=== PATIENT | female | born 1970 ===

== ENCOUNTER 2019-08-28 16:31 | Emergency (ER) | payer SELFPAY ==
[2019-08-28 16:54] VITALS: BP 153/88; PULSE 94; RESP 16; TEMP 37.1; O2SAT 99; BMI 31.8
--- NOTE | 2019-08-28 17:12 | ED_ITS ---
HPI - Skin/Abscess/Foreign Bdy General: Chief complaint: Skin/Abscess/Foreign Body Stated complaint: possible cyst Time Seen by Provider: 08/28/19 17:09 History of Present Illness: HPI narrative: Patient is a 49-year-old female comes to the ED with painful lesion on groin area. Patient says symptoms started about 2 to 3 days ago. Lesion has gotten bigger and more painful. Location of the lesion is just to the right of the vagina. Lesion has erythema and warmth. She describes it as a sharp and burning pain. She rates the pain an 8 out of 10 when she has to do any movement. Patient says earlier today she sterilized a needle and tried to pop lesion but it was unsuccessful and too painful. Denies any fever, chills, nausea, vomiting, bladder or bowel symptoms. Associated symptoms: Deny chills, fever(s), nausea or vomiting Review of Systems Const: Denies: fever(s), chills or fatigue Eyes: Denies: change in vision or eye discomfort ENMT: Denies: throat pain, odynophagia, nasal discharge or nasal congestion Card: Denies: chest pain, palpitations, edema, swelling of feet/ankles, dyspnea on exertion or orthopnea Resp: Denies: dyspnea, productive cough or non-productive cough GI: Denies: abdominal pain, nausea, vomiting, diarrhea, constipation or hematochezia : Reports: genital lesions (possible abscess); Denies: flank pain, dysuria or hematuria Musc: Denies: neck pain, back pain or extremity swelling Skin/Breast: Reports: new lesions; Denies: rash Neuro: Denies: headache(s), numbness in extremities or weakness in extremities PFS ED PFSH: Social History Smoking and tobacco status: current every day smoker Physical Exam Const: COMMON NORMALS: no acute distress, patient oriented x3 and alert GENERAL APPEARANCE: cooperative and comfortable HENMT: COMMON NORMALS: normocephalic HEAD & SCALP: normocephalic MOUTH: Normal oral and palatal mucosa present THROAT: posterior oropharynx normal and uvula midline Eye: COMMON NORMALS: Equal, round and reactive pupils present PUPIL: Yes Equal, round and reactive pupils present Neck/C-Spine: COMMON NORMALS: supple GENERAL: Yes normal visual inspection Resp: COMMON NORMALS: normal respiratory effort, No retractions, No use of accessory muscles and clear to auscultation bilaterally AUSCULTATION: clear to auscultation bilaterally Cardio: COMMON NORMALS: regular rate, regular rhythm, S1 normal heart sound present, S2 normal heart sound present, No gallops present (Cardio), No clicks present (Cardio), No murmurs present (Cardio) and Peripheral pulses 2+ throughout RATE: regular rate RHYTHM: regular rhythm HEART SOUNDS: S1 normal heart sound present and S2 normal heart sound present PERIPHERAL PULSES: Peripheral pulses 2+ throughout GI: COMMON NORMALS: Normal to inspection, nondistended, normoactive bowel sounds present, Soft to palpation, non-tender and no masses PALPATION: Yes Soft to palpation : COMMON NORMALS: Yes no CVA tenderness BLADDER/KIDNEY EXAM: Yes no CVA tenderness EXTERNAL FEMALE EXAM: Yes externally tender, Yes external swelling and Yes lesion (Exam finding details in Skin exam section) Back/Pelvis: COMMON NORMALS: no CVA tenderness Extremity: COMMON NORMALS: normal to inspection and no pedal edema Neuro: COMMON NORMALS: patient oriented x3 and moves all extremities SENSORIUM/ORIENTATION: Yes alert Skin: LESIONS: lesion noted Genital Lesion Lesion size (cm): 1 Lesion location: lower right labia majora Lesion color: Yes erythematous and Yes white (white head) Lesion consistency: Yes fluctuent and Yes firm Lesion surface: Yes pointed and Yes warm Lesion finding consistent with: Yes other (abscess) Procedures Abscess I/D Site: other (On right lower outer labia majora) Local Anesthetic: lidocaine 1% Amount of anesthesia used (mL): 10 Technique: other (10 blade) Amount of fluid expressed (mL): 1 Irrigation: Yes Packing used?: none Course Vital Signs: Vital signs: Vital Signs Temperature 98.7 F 08/28/19 16:54 Pulse Rate 78 08/28/19 21:20 Respiratory Rate 18 08/28/19 21:20 Blood Pressure 133/78 08/28/19 21:20 Pulse Oximetry 97 08/28/19 21:20 MDM - Skin/Abscess/Foreign Bdy MDM Narrative: Medical decision making narrative: Patient is a 49-year-old female comes to the ED with an abscess on external genital right labia majora. 1% local lidocaine was used and a small incision made with some purulent drainage removed. Culture of purulent drainage was collected and sent to lab. Patient was then given prescription for Bactrim and told to follow-up with PCP in 7 days for reevaluation. Patient was told to return to the ED if symptoms continue to worsen after 3 days of antibiotic treatment. Patient understood and agreed with plan. Discharge Plan Discharge Patient Disposition: Home, Self-Care Clinical Impression: Abscess Condition: Stable Prescriptions: New Bactrim DS 800-160 mg tablet 1 tab PO BID 7 Days Qty: 14 RF: 0 Discharge Orders: Discharge Order (Routine); Ordered 08/28/19 Ordered By: Jaren Delarosa Referrals: David Avalos MD [Primary Care Provider] - Discharge Diet: Regular Discharge Activity: Resume usual activity Patient Instructions: Abscess Incision and Drainage (ED), Abscess (ED) Activity Restrictions/Additional Instructions: Call your PCP tomorrow morning and set up a follow-up appointment sometime early next week. Take full course of antibiotic as prescribed. Take Tylenol or ibuprofen for pain. Clean around abscess site daily. Return to ED for reevaluation if symptoms worsen after being on antibiotic for 3 days. Discharge Date/Time: 08/28/19 21:39 Coding Level of Care Code ED Pest Management Supervisor for Merly Fwfabrizio Exam Comprehensive
[2019-08-28] MEDS: lidocaine 1% INJ 20 mL IM (18:49)
[2019-08-28] MEDS: HYDROcodone-acetaminophen 7.5-325 mg Tablet 1 TAB PO ×2 (18:49→21:09)
[2019-08-28] MEDS: sulfamethoxazole-trimeth DS 160-800 mg Tablet 1 TAB PO (21:09)
[2019-08-28 21:20] VITALS: BP 133/78; PULSE 78; RESP 18; O2SAT 97
== END 2019-08-28 21:39 | disposition home or self-care (01) ==
PROVIDERS: Emergency Provider Physician Assistant; PCP Family Medicine
DX: N76.4 Abscess of vulva (principal); F17.210 Nicotine dependence, cigarettes, uncomplicated
CPT/HCPCS: 12345; 56405; 99281; 99283; J2001

== ENCOUNTER 2022-01-03 13:07 | Emergency (ER) | payer BC, MEDICAID, SELFPAY ==
[2022-01-03 13:15] VITALS: BP 135/63; PULSE 65; RESP 16; TEMP 36.6; O2SAT 99; BMI 31.4
--- NOTE | 2022-01-03 13:47 | ED_ITS ---
HPI - Wound/Laceration General: Chief Complaint: Wound/Laceration Stated Complaint: Right side big toe infection Time Seen by Provider: 01/03/22 13:37 History of Present Illness: Patient is a 51-year-old female comes to the ED with left toe pain and swelling. Symptoms started approximately 4 days ago. She rates her pain currently an 8 out of 10. Denies any fever, chills, nausea/vomiting, bladder or bowel symptoms. Associated symptoms: Denies chills, fever(s), nausea or vomiting Review of Systems Const: Denies: fever(s), chills or fatigue Eyes: Denies: change in vision or eye discomfort ENMT: Denies: throat pain, odynophagia, nasal discharge or nasal congestion Card: Denies: chest pain, palpitations, edema, swelling of feet/ankles, dyspnea on exertion or orthopnea Resp: Denies: dyspnea, productive cough or non-productive cough GI: Denies: abdominal pain, nausea, vomiting, diarrhea, constipation or hematochezia : Denies: flank pain, dysuria or hematuria Musc: Reports: extremity pain (left great toe pain) and extremity swelling (left great toe swelling); Denies: neck pain or back pain Skin/Breast: Denies: rash or new lesions Neuro: Denies: headache(s), numbness in extremities or weakness in extremities PFS ED PFSH: Medical History No pertinent family history Surgical History No pertinent past surgical history Social History Smoking and tobacco status: current every day smoker Female Reproductive History: Date of last menstrual period: 12/18/21 Physical Exam Const: COMMON NORMALS: no acute distress, patient oriented x3 and alert GENERAL APPEARANCE: cooperative and comfortable HENMT: COMMON NORMALS: normocephalic HEAD & SCALP: normocephalic MOUTH: Normal oral and palatal mucosa present THROAT: posterior oropharynx normal and uvula midline Neck/C-Spine: COMMON NORMALS: supple GENERAL: Yes normal visual inspection Resp: COMMON NORMALS: normal respiratory effort, No retractions, No use of accessory muscles and clear to auscultation bilaterally AUSCULTATION: clear to auscultation bilaterally Cardio: COMMON NORMALS: regular rate, regular rhythm, S1 normal heart sound present, S2 normal heart sound present, No gallops present (Cardio), No clicks present (Cardio), No murmurs present (Cardio) and Peripheral pulses 2+ throughout RATE: regular rate RHYTHM: regular rhythm HEART SOUNDS: S1 normal heart sound present and S2 normal heart sound present PERIPHERAL PULSES: Peripheral pulses 2+ throughout GI: COMMON NORMALS: Normal to inspection, nondistended, normoactive bowel sounds present, Soft to palpation, non-tender and no masses PALPATION: Yes Soft to palpation : COMMON NORMALS: Yes no CVA tenderness BLADDER/KIDNEY EXAM: Yes no CVA tenderness Back/Pelvis: COMMON NORMALS: no CVA tenderness Extremity: NARRATIVE EXTREMITY EXAM: Left foot?ingrown toenail with some surrounding erythema, swelling and warmth. No purulent drainage seen. Neuro: COMMON NORMALS: patient oriented x3 SENSORIUM/ORIENTATION: Yes alert GAIT: Yes Normal gait present Skin: GENERAL SKIN EXAM: dry skin Course Vital Signs: Vital signs: Vital Signs Temperature 97.8 F 01/03/22 13:15 Pulse Rate 65 01/03/22 13:15 Respiratory Rate 16 01/03/22 13:15 Blood Pressure 135/63 01/03/22 13:15 Pulse Oximetry 99 01/03/22 13:15 Oxygen Delivery Me thod 01/03/22 13:15 MDM - Wound/Laceration Medical Decision Making Patient is a 51-year-old female comes to the ED with left great toe pain and swelling. Vitals are stable. Exam findings show ingrown toenail with some surrounding erythema, swelling and warmth. I placed order with case management for patient be referred to podiatry. Patient was discharged home with a prescription for Celebrex for pain and clarithromycin. She was told that director of casework will get an appointment set up with podiatry so she can have an ingrown toenail removed. Discharge Plan Discharge Patient Disposition: Home Clinical Impression: Ingrowing nail, left great toe Condition: Stable Prescriptions: New clarithromycin 500 mg tablet 500 mg PO BID 7 Days Qty: 14 0RF Celebrex 100 mg capsule 100 mg PO BID PRN (Reason: pain) Qty: 20 0RF Discharge Orders: Discharge ED (Routine); Ordered 01/03/22 Ordered By: Jaren Delarosa Discharge Diet: Regular Discharge Activity: Increase activity as tolerated Patient Instructions: Ingrown Nail (ED) Activity Restrictions/Additional Instructions: Follow-up with medical provider as directed. Case management should be contacted in the next several days set up an appointment with podiatry for further management of ingrown toenail. Continue using warm water Epsom salt soaks to help with symptoms. Take medications as prescribed. Return to the ER or your medical provider if condition worsens. Please read and understand discharge instructions. Thank you for choosing [facility] for your healthcare needs today. Please realize this is an emergency room and that we are providing you with a medical screening exam and this may not be complete and all inclusive of all the testing and or work up that you may need to determine your ailment or severity of your illness. It is very important that you follow up as instructed or that you return to the Emergency Department should you have concerns or if your condition changes or worsens in any way. Coding Level of Care Code ED Lemon Grower for Melry Kate Exam Comprehensive
[2022-01-03] MEDS: ketorolac 60 mg/2 mL INJ IM (14:46)
--- NOTE | 2022-01-03 14:53 | DCPLANNER ---
Addendum entered by Edilma Venegas 03/09/22 15:29: Patient had a follow up appointment scheduled with ortho - patient did not attend appointment Addendum entered by Edilma Venegas 01/07/22 13:07: Patient has a follow up appointment scheduled for Friday January 07, [address]22 at 2:[address] Aguillon at ortho. Clinic will call patient with appointment information. Addendum entered by Edilma Venegas 01/05/22 12:10: biofuels plant manager received the following message from the ortho clinic regarding follow up appointment: Her number is not in service // mailed letter for pt to call back biofuels plant manager called phone number [phone], this number is disconnected. biofuels plant manager called patients daughter, who gave sample case porter a good phone number for patient - [phone]. biofuels plant manager gave this number to the ortho clinic. biofuels plant manager also asked patients daughter if she could give patient a message to call the ortho clinic to schedule an appointment. Original Note: biofuels plant manager had message to schedule a follow up appointment for patient with ortho. biofuels plant manager sent patients information to the front office staff at ortho. Patients information will be printed and reviewed. Clinic will call patient with appointment information.
== END 2022-01-03 14:50 | disposition home or self-care (01) ==
PROVIDERS: Emergency Provider Physician Assistant
DX: L60.0 Ingrowing nail (principal); F17.210 Nicotine dependence, cigarettes, uncomplicated
CPT/HCPCS: 96372; 99284; J1885

== ENCOUNTER 2022-10-01 11:39 | Emergency (ER) | payer BC, MEDICAID, SELFPAY ==
[2022-10-01 11:47] VITALS: BP 143/82; PULSE 70; RESP 16; TEMP 36.8; O2SAT 100; BMI 27.7
--- NOTE | 2022-10-01 11:58 | ED_ITS ---
HPI - Extremity Problem General: Chief complaint: Extremity Problem,Nontraumatic Stated complaint: RT upper calf infection (black spot) Time Seen by Provider: 10/01/22 11:52 History of Present Illness: Patient is a 52-year-old female comes to the ED with skin infection on right lower leg. Patient states that approximately a month ago she was getting some of her varicose veins worked on and one of the spots where the provider performed the procedure but when the varicose veins got infected. Wound was on right calf just below knee and it started becoming more painful and tender and there was some red streaking in right leg as well. Patient was put on Bactrim almost 2 weeks ago and she has her last dose of Bactrim today. Her infection and wound were healing up well. Today she noticed that she started develop some redness around the wound on her right calf. She says it is also tender to the touch as well. She just wanted to come here to get checked out before infection gets worse. Denies any fevers or purulent drainage from wound. Associated symptoms: Deny chest pain, fever(s) or rash Review of Systems Const: Denies: fever(s), chills or fatigue Eyes: Denies: change in vision or eye discomfort ENMT: Denies: throat pain, odynophagia, nasal discharge or nasal congestion Card: Denies: chest pain, palpitations, edema, swelling of feet/ankles, dyspnea on exertion or orthopnea Resp: Denies: dyspnea, productive cough or non-productive cough GI: Denies: abdominal pain, nausea, vomiting, diarrhea, constipation or hematochezia : Denies: flank pain, dysuria or hematuria Musc: Denies: neck pain, back pain or extremity swelling Skin/Breast: Reports: new lesions (Old procedural wound on right lower leg healing with surrounding erythema); Denies: rash Neuro: Denies: headache(s), numbness in extremities or weakness in extremities PFSH ED PFSH: Medical History No pertinent family history Surgical History No pertinent past surgical history Social History Smoking and tobacco status: current every day smoker Physical Exam Const: COMMON NORMALS: no acute distress, patient oriented x3, healthy appearing and alert HENMT: COMMON NORMALS: normocephalic HEAD & SCALP: normocephalic MOUTH: Normal oral and palatal mucosa present THROAT: posterior oropharynx normal and uvula midline Neck/C-Spine: COMMON NORMALS: supple GENERAL: Yes normal visual inspection Resp: COMMON NORMALS: normal respiratory effort, No retractions, No use of accessory muscles and clear to auscultation bilaterally AUSCULTATION: clear to auscultation bilaterally Cardio: COMMON NORMALS: regular rate, regular rhythm, S1 normal heart sound present, S2 normal heart sound present, No gallops present (Cardio), No clicks present (Cardio), No murmurs present (Cardio) and Peripheral pulses 2+ throughout RATE: regular rate RHYTHM: regular rhythm HEART SOUNDS: S1 normal heart sound present and S2 normal heart sound present PERIPHERAL PULSES: Peripheral pulses 2+ throughout GI: COMMON NORMALS: Normal to inspection, nondistended, normoactive bowel sounds present, Soft to palpation, non-tender and no masses PALPATION: Yes Soft to palpation : COMMON NORMALS: Yes no CVA tenderness BLADDER/KIDNEY EXAM: Yes no CVA tenderness Back/Pelvis: COMMON NORMALS: no CVA tenderness Extremity: NARRATIVE EXTREMITY EXAM: Right upper calf just inferior to knee. Patient has a small healing wound that has formed a scab over it. There appears to be dried blood in wound as well. No necrotic tissue seen. No purulent drainage. There is some mild surrounding erythema, warmth and tenderness. Findings suggestive of developing cellulitis. GENERAL: Yes normal exam except as noted Neuro: COMMON NORMALS: patient oriented x3 SENSORIUM/ORIENTATION: Yes alert GAIT: Yes Normal gait present Course Vital Signs: Vital signs: Vital Signs Temperature 98.3 F 10/01/22 12:09 Pulse Rate 70 10/01/22 12:09 Respiratory Rate 16 10/01/22 12:09 Blood Pressure 143/82 10/01/22 12:09 Pulse Oximetry 100 10/01/22 12:09 Oxygen Delivery Me thod Room Air 10/01/22 11:47 MDM - Extremity (Nontraumatic) Medical Decision Making Patient is a 52-year-old female comes to the ED with skin infection on right lower leg. Patient states that approximately a month ago she was getting some of her varicose veins worked on and one of the spots where the provider performed the procedure but when the varicose veins got infected. Wound was on right calf just below knee and it started becoming more painful and tender and there was some red streaking in right leg as well. Patient was put on Bactrim almost 2 weeks ago and she has her last dose of Bactrim today. Her infection and wound were healing up well. Today she noticed that she started develop some redness around the wound on her right calf. She says it is also tender to the touch as well. She just wanted to come here to get checked out before infection gets worse. Denies any fevers or purulent drainage from wound. Vitals are stable. Patient appears nontoxic and in no acute distress or pain. Right upper calf just inferior to knee. Patient has a small healing wound that has formed a scab over it. There appears to be dried blood in wound as well. No necrotic tissue seen. No purulent drainage. There is some mild surrounding erythema, warmth and tenderness. Findings suggestive of developing cellulitis. Patient was stable for discharge home and sent home with a prescription for Keflex. Told to follow-up with PCP within a week for reevaluation. Return ED precautions given. Patient understood and agreed with plan. Discharge Plan Discharge Patient Disposition: Home Clinical Impression: Cellulitis Qualifiers: Site of cellulitis: extremity Site of cellulitis of extremity: lower extremity Laterality: right Qualified Code(s): L03.115 - Cellulitis of right lower limb Condition: Stable Prescriptions: New cephalexin 500 mg capsule 500 mg PO Q6H 7 Days Qty: 28 0RF Discharge Orders: Discharge ED (Routine); Ordered 10/01/22 Ordered By: Jaren Delarosa Discharge Diet: Regular Discharge Activity: Increase activity as tolerated Patient Instructions: Cellulitis (ED) Activity Restrictions/Additional Instructions: Follow-up with medical provider as directed in the next 5 to 7 days for reevaluation. Take medications as prescribed. Return to the ER or your medical provider if condition worsens. Please read and understand discharge instructions. Thank you for choosing [facility] for your healthcare needs today. Please realize this is an emergency room and that we are providing you with a medical screening exam and this may not be complete and all inclusive of all the testing and or work up that you may need to determine your ailment or severity of your illness. It is very important that you follow up as instructed or that you return to the Emergency Department should you have concerns or if your condition changes or worsens in any way. Coding Level of Care Code ED Assisted Living Manager for Merly Kate
[2022-10-01 12:09] VITALS: BP 143/82; PULSE 70; RESP 16; TEMP 36.8; O2SAT 100
== END 2022-10-01 12:09 | disposition home or self-care (01) ==
PROVIDERS: Emergency Provider Physician Assistant
DX: L03.115 Cellulitis of right lower limb (principal); F17.210 Nicotine dependence, cigarettes, uncomplicated
CPT/HCPCS: 99283

== ENCOUNTER 2022-12-17 16:23 | Emergency (ER) | payer BC, MEDICAID, SELFPAY ==
[2022-12-17 16:27] VITALS: BP 146/67; PULSE 91; RESP 17; TEMP 36.6; O2SAT 98
--- NOTE | 2022-12-17 16:51 | USR_ITS ---
PROCEDURE INFORMATION: Exam: US Duplex Left Lower Extremity Veins, Limited Exam date and time: 12/17/2022 5:14 PM Age: 52 years old Clinical indication: Pain; Leg, lower; Left; Additional info: R/O dvt TECHNIQUE: Imaging protocol: Real-time duplex ultrasound of the left extremity with 2-D anthony scale, color Doppler flow and spectral waveform analysis including responses to compression and other maneuvers (when performed) with image documentation. Limited exam focused on the left lower extremity veins. COMPARISON: No relevant prior studies available. FINDINGS: Left deep veins: Unremarkable. The common femoral, femoral, proximal profunda femoral, popliteal, posterior tibial and peroneal veins are patent without thrombus. Normal compressibility, augmentation response and Doppler waveforms. Superficial veins: Unremarkable. Saphenofemoral junction is patent without thrombus. Soft tissues: Unremarkable. US/CV venous duplex [facility] [id number] IMPRESSION: No sonographic evidence of deep vein thrombosis.
--- NOTE | 2022-12-17 16:52 | ED_ITS ---
HPI - Extremity Problem General: Chief complaint: Extremity Injury, Lower Stated complaint: left lower leg swollen Time Seen by Provider: 12/17/22 16:51 History of Present Illness: A 52-year-old female comes in today for complaints of injury to the left lower leg. Patient approximately 4 days ago had her leg hit in the side by a car door. Patient has a small bruise to the extremity however in the last day patient has had increasing redness and swelling distally to the bruise. Patient appears nontoxic. Patient has no history of DVTs. Patient denies diabetes. Patient has reported allergy to penicillin but it occurred when she was a young child, patient does get some nausea from codeine. Review of Systems General: Reports: 10 or more systems reviewed and unremarkable except in HPI and below Musc: Reports: extremity pain and extremity swelling [facility] ED PFSH: Medical History No pertinent family history Surgical History No pertinent past surgical history Social History Smoking and tobacco status: current every day smoker Physical Exam Const: COMMON NORMALS: alert HENMT: COMMON NORMALS: normocephalic HEAD & SCALP: normocephalic Neck/C-Spine: COMMON NORMALS: full ROM Resp: COMMON NORMALS: normal respiratory effort and clear to auscultation bilaterally AUSCULTATION: clear to auscultation bilaterally Cardio: COMMON NORMALS: regular rate and regular rhythm RATE: regular rate RHYTHM: regular rhythm Back/Pelvis: COMMON NORMALS: thoracic and lumbar spine normal to inspection Extremity: LEFT LOWER EXTREMITY: Yes lower leg (Redness and induration to the anterior leg.) Left lower leg: Yes inspection and Yes special tests Left lower leg special tests: Jigar's sign: Negative Neuro: SENSORIUM/ORIENTATION: Yes alert Skin: NARRATIVE SKIN EXAM: Redness left lower leg Course Vital Signs: Vital signs: Vital Signs Temperature 97.9 F 12/17/22 16:27 Pulse Rate 88 12/17/22 17:58 Respiratory Rate 18 12/17/22 17:58 Blood Pressure 151/93 12/17/22 17:58 Pulse Oximetry 100 12/17/22 17:58 Oxygen Delivery Me thod Room Air 12/17/22 16:27 MDM - Extremity (Nontraumatic) Medical Decision Making Patient comes in today for evaluation of redness and swelling to the left lower leg. Patient has injury approximately 4 days old to the lower leg when it was hit in the side by a car door. Left lower leg is red with some mild induration. Distal pulses and sensations are intact. Differential diagnosis includes contusion, cellulitis, stasis dermatitis, DVT. Venous Doppler study of the left lower extremity noted no DVT. We will go ahead and treat patient with cephalexin for cellulitis. Patient reported understanding agreed to plan. Lab Data Radiology Impressions Venous Duplex 12/17/22 16:51 IMPRESSION: No sonographic evidence of deep vein thrombosis. All radiology interpretation(s) finalized by discharge Discharge Plan Discharge Patient Disposition: Home Clinical Impression: Cellulitis and abscess of left lower extremity Condition: Stable Prescriptions: New cephalexin 500 mg capsule 500 mg PO Q8H 10 Days Qty: 30 0RF hydrocodone-acetaminophen 5-325 mg tablet 1 tab PO Q8H PRN (Reason: pain (scale score 7-10)) Qty: 6 0RF Discharge Orders: Discharge ED (Routine); Ordered 12/17/22 Ordered By: Yanick Kiran Discharge Diet: Usual diet Discharge Activity: Increase activity as tolerated Patient Instructions: Cellulitis (ED) Activity Restrictions/Additional Instructions: B [facility] and rest. Elevate leg is much as possible. Take antibiotics as directed. Use acetaminophen or for pain. Follow-up with primary care for further instructions. Return to ED for worsening symptoms such as high fever greater than 100.4, nausea or vomiting, increasing redness and swelling to the lower extremity. Coding Level of Care Code ED Supervisor Felling Bucking for Merly Kate
[2022-12-17] MEDS: cephALEXin 500 mg Capsule PO (17:52)
[2022-12-17] MEDS: HYDROcodone-acetaminophen 5-325 mg Tablet 1 TAB PO (17:52)
[2022-12-17 17:58] VITALS: BP 151/93; PULSE 88; RESP 18; O2SAT 100
[2022-12-17 17:59] VITALS: BP 151/93; PULSE 88; RESP 18; O2SAT 100
== END 2022-12-17 18:02 | disposition home or self-care (01) ==
PROVIDERS: Emergency Provider Nurse Practitioner Family
DX: L03.116 Cellulitis of left lower limb (principal); L02.416 Cutaneous abscess of left lower limb; F17.210 Nicotine dependence, cigarettes, uncomplicated
CPT/HCPCS: 93971; 99284

== ENCOUNTER 2023-01-23 09:59 | Outpatient (CLI) | payer BC, MEDICAID, SELFPAY ==
--- NOTE | 2023-01-23 10:04 | CT_ITS ---
WS: [id number] LDCT LUNG CANCER SCREENING HISTORY: NICOTINE DEPENDENCE, CIGARETTES TECHNIQUE: Axial imaging performed from the apices to 1 cm below the costophrenic angles. Coronal and sagittal reformats are submitted with axial MIP series. All CT scans at [facility] use at least one of these dose optimization techniques: automated exposure control; mA and/or kV adjustment per patient size (includes targeted exams where dose is matched to clinical indication); or iterativ e reconstruction. DLP: 55.80 mGy.cm DIvol: Mean CTDIvol: 1.10 (mGy) COMPARISON: None available. Diagnostic quality: Satisfactory Lungs: There are a few benign scattered granulomata. No suspicious mass or nodules. No endobronchial lesions. Heart: Normal size heart with no pericardial effusion.. Other findings: No adenopathy. Mild atherosclerosis aorta. IMPRESSION: CT/CT lung screening 22822 LUNG-RADS: 2-Benign Appearance or Behavior FOLLOW UP: 12 Month: Continue annual screening with LDCT OTHER FINDINGS (S MODIFIER): None.
== END 2023-01-23 10:00 | disposition home or self-care (01) ==
LOC: RAD 09:59
PROVIDERS: Visit Provider Family Medicine
DX: Z12.2 Encounter for screening for malignant neoplasm of respiratory organs (principal); F17.210 Nicotine dependence, cigarettes, uncomplicated
CPT/HCPCS: 71271

== ENCOUNTER 2024-04-03 13:58 | Outpatient (CLI) | payer BC, MEDICAID, SELFPAY ==
--- NOTE | 2024-04-03 14:02 | MM_ITS ---
WS: [id number] BILATERAL 3D TOMOSYNTHESIS DIGITAL SCREENING MAMMOGRAPHY WITH CAD CLINICAL INFORMATION: SCREENING HISTORY: Screening mammogram. No current complaints. COMPARISON: Baseline TECHNIQUE: Bilateral CC and MLO views. FINDINGS: The breasts are composed of heterogeneous fibroglandular density tissue, which can limit the detectio n of small underlying mass lesions. No suspicious mass, asymmetry, calcifications, or architectural d istortion. No evidence of malignancy. Incidental punctate calcifications. MM/MM [facility] tomosynthesis [id number] IMPRESSION: DENSITY: The breasts are heterogeneously dense, which may obscure small masses. BI-RADS: 2 - Benign FOLLOW UP: 1 Year Follow-up Recommend return to annual screening mammography.
== END 2024-04-03 13:59 | disposition home or self-care (01) ==
LOC: RAD 13:59
PROVIDERS: PCP Family Medicine; Visit Provider Family Medicine
DX: Z12.31 Encounter for screening mammogram for malignant neoplasm of breast (principal); R92.333 Mammographic heterogeneous density, bilateral breasts; R92.323 Mammographic fibroglandular density, bilateral breasts; R92.1 Mammographic calcification found on diagnostic imaging of breast
CPT/HCPCS: 77063; 77067